=== PATIENT | female | born 1970 | race African-American/Black ===

== ENCOUNTER 2023-08-17 08:48 | Emergency (ER) | payer BC ==
[~2023-08-17] VITALS: Ht 157.5 cm; Wt 68.0 kg
[2023-08-17 09:09] VITALS: BP 150/115; TEMP 97.8; O2SAT 99
== END 2023-08-17 09:55 | disposition home or self-care (01) ==
LOC: ER 08:59
DX: Z01.84 Encounter for antibody response examination (principal); E11.9 Type 2 diabetes mellitus without complications; F19.10 Other psychoactive substance abuse, uncomplicated; Z20.822 Contact with and (suspected) exposure to COVID-19